=== PATIENT | male | born 1950 | race Caucasian/White ===

== ENCOUNTER 2017-12-08 10:44 | Outpatient (REF) | payer MEDICARE, BC, SELFPAY ==
[2017-12-08 20:44] LABS: Anion Gap 9.5 mmol/L (3-11); BUN 15 mg/dL (7-18); CO2 26.5 mmol/L (21.0-32.0); CREATININE 0.74 mg/dL (0.70-1.30); Calcium 9.1 mg/dL (8.5-10.1); Chloride 105 mmol/L (98-107); Glucose 100 mg/dL (70-100); Potassium 4.4 mmol/L (3.5-5.1); Sodium 141 mmol/L (136-145)
== END 2017-12-08 10:45 ==
LOC: NCHCN 10:44
PROVIDERS: PCP Physician Assistant; Visit Provider Physician Assistant Medical
DX: I10 Essential (primary) hypertension (principal)
CPT/HCPCS: 80048

== ENCOUNTER 2019-01-03 08:30 | Outpatient (REF) | payer MEDICARE, BC, SELFPAY ==
[2019-01-03 19:29] LABS: Anion Gap 11.1 mmol/L (3-11); BUN 17 mg/dL (7-18); CO2 23.9 mmol/L (21.0-32.0); CREATININE 0.82 mg/dL (0.70-1.30); Calculated LDL 109 mg/dL; Chloride 105 mmol/L (98-107); Cholesterol 195 mg/dL (50-200); Glucose 122 mg/dL (70-100); HDL Cholesterol 75 mg/dL (40-60); Hemoglobin A1C 5.8 % (4.5-6.2); Potassium 4.5 mmol/L (3.5-5.1); Sodium 140 mmol/L (136-145); Triglyceride 57 mg/dL (30-150)
== END 2019-01-03 08:50 ==
LOC: NCHCN 08:30
PROVIDERS: PCP Physician Assistant; Visit Provider Nurse Practitioner Family
DX: R73.9 Hyperglycemia, unspecified (principal); I10 Essential (primary) hypertension; Z13.6 Encounter for screening for cardiovascular disorders
CPT/HCPCS: 80048; 80061; 83036

== ENCOUNTER 2020-01-16 14:34 | Outpatient (REF) | payer MEDICARE, BC, SELFPAY ==
[2020-01-16 19:07] LABS: ALT 24 U/L (16-63); AST 10 U/L (15-37); Albumin 4.2 g/dL (3.4-5.0); Alkaline Phosphatase 70 U/L (46-116); Anion Gap 4.8 mmol/L (3-11); BUN 17 mg/dL (7-18); Bilirubin, Total 1.5 mg/dL (0.2-1.0); CO2 28.2 mmol/L (21.0-32.0); CREATININE 0.72 mg/dL (0.70-1.30); Calcium 9.1 mg/dL (8.5-10.1); Calculated LDL 110 mg/dL (<100); Chloride 105 mmol/L (98-107); Cholesterol 209 mg/dL (<200); Glucose 110 mg/dL (74-106); HDL Cholesterol 88 mg/dL (40-60); Potassium 4.2 mmol/L (3.5-5.1); Sodium 138 mmol/L (136-145); TSH (W/Ref FT4) 3.77 uIU/mL (0.36-3.74); Total Protein 7.4 g/dL (6.4-8.2); Triglyceride 58 mg/dL (<150)
[2020-01-16 19:26] LABS: FREE T4 0.91 ng/dL (0.76-1.46)
== END 2020-01-16 14:54 ==
LOC: NCHCN 14:34
PROVIDERS: PCP Physician Assistant; Visit Provider Physician Assistant
DX: R73.03 Prediabetes (principal); I10 Essential (primary) hypertension
CPT/HCPCS: 80053; 80061; 84439; 84443

== ENCOUNTER 2021-02-07 14:52 | Outpatient (REF) | payer MEDICARE, BC, SELFPAY ==
[2021-02-07 20:10] LABS: HCT 47.2 % (40.0-50.0); HGB 15.1 g/dL (13.5-17.5); MCH 30.9 pg (27.0-33.0); MCV 96.5 fL (80-95); MPV 11.1 fL (8.0-11.0); Platelet Count 276 10^3/uL (130-400); RBC 4.89 10^6/uL (4.36-5.78); RDW 12.9 % (11.8-14.1); RDW-SD 46.5 fL; WBC 5.84 10^3/uL (4.4-10.8)
[2021-02-07 20:29] LABS: ALT 26 U/L (16-63); Anion Gap 9.8 mmol/L (3-11); BUN 14 mg/dL (7-18); CO2 27.2 mmol/L (21.0-32.0); CREATININE 0.9 mg/dL (0.70-1.30); Calcium 9.3 mg/dL (8.5-10.1); Calculated LDL 114 mg/dL (<100); Chloride 104 mmol/L (98-107); Cholesterol 207 mg/dL (<200); Glucose 118 mg/dL (74-106); HDL Cholesterol 85 mg/dL (40-60); Potassium 4.6 mmol/L (3.5-5.1); Sodium 141 mmol/L (136-145); Triglyceride 40 mg/dL (<150)
[2021-02-07 21:00] LABS: Creatine Kinase 61 U/L (39-308)
== END 2021-02-07 14:53 | disposition home or self-care (01) ==
LOC: NCHCN 14:52
PROVIDERS: PCP Physician Assistant; Visit Provider Internal Medicine
DX: I48.91 Unspecified atrial fibrillation (principal)
CPT/HCPCS: 80048; 80061; 82550; 85027; 84460

== ENCOUNTER 2021-12-04 15:08 | Outpatient (REF) | payer MEDICARE, BC, SELFPAY ==
[2021-12-04 19:08] LABS: HGB 15.5 g/dL (13.5-17.5); MCH 31.2 pg (27.0-33.0); MCV 95 fL (80-95); MPV 10.8 fL (8.0-11.0); Platelet Count 255 10^3/uL (130-400); RBC 4.97 10^6/uL (4.36-5.78); RDW 13.2 % (11.8-14.1); RDW-SD 46.1 fL; WBC 8.67 10^3/uL (4.4-10.8)
[2021-12-04 19:18] LABS: ALT 35 U/L (16-63); AST 18 U/L (15-37); Albumin 4.2 g/dL (3.4-5.0); Alkaline Phosphatase 75 U/L (46-116); Anion Gap 10.7 mmol/L (3-11); BUN 18 mg/dL (7-18); CO2 25.3 mmol/L (21.0-32.0); CREATININE 0.8 mg/dL (0.70-1.30); Chloride 105 mmol/L (98-107); Glucose 108 mg/dL (74-106); LDL CHOLESTEROL 105 mg/dL (<100); Potassium 4.3 mmol/L (3.5-5.1); Sodium 141 mmol/L (136-145); Total Protein 7.6 g/dL (6.4-8.2)
== END 2021-12-04 15:09 | disposition home or self-care (01) ==
LOC: NCHCN 15:08
PROVIDERS: PCP Physician Assistant; Visit Provider Internal Medicine
DX: I48.91 Unspecified atrial fibrillation (principal); I10 Essential (primary) hypertension; R73.03 Prediabetes
CPT/HCPCS: 80053; 83721; 85027

== ENCOUNTER 2023-03-05 22:27 | Outpatient (REF) | payer MEDICARE, BC, SELFPAY ==
[2023-03-05 18:47] LABS: Abs Immature Grans 0.03 10^3/uL (0.0-0.06); Absolute Basophil Count 0.06 10^3/uL (0.0-0.2); Absolute Eosinophil Count 0.11 10^3/uL (0.0-0.7); Absolute Lymphocyte Count 0.96 10^3/uL (1.2-3.4); Absolute Monocyte Count 0.54 10^3/uL (0.1-0.8); Basophils % 0.9; Eosinophils % 1.7; HCT 49.3 % (40.0-50.0); Immature Grans % 0.5; Lymphocytes % 14.8; MCH 31.5 pg (27.0-33.0); MCHC 32.5 % (32.0-36.0); MCV 97 fL (80-95); MPV 10.9 fL (8.0-11.0); Monocytes % 8.3; Neutrophils % 73.8; Platelet Count 275 10^3/uL (130-400); RBC 5.08 10^6/uL (4.36-5.78); RDW 13.1 % (11.8-14.1); RDW-SD 46.8 fL
[2023-03-05 18:57] LABS: Anion Gap 5.8 mmol/L (3-11); BUN 13 mg/dL (7-18); CO2 29.2 mmol/L (21.0-32.0); CREATININE 0.9 mg/dL (0.70-1.30); Calcium 9.8 mg/dL (8.5-10.1); Calculated LDL 113 mg/dL (<100); Chloride 106 mmol/L (98-107); Cholesterol 216 mg/dL (<200); Estimated GFR 89.07 (mL/min/1.73m2); Glucose 117 mg/dL (74-106); HDL Cholesterol 88 mg/dL (40-60); Sodium 141 mmol/L (136-145); Triglyceride 77 mg/dL (<150)
== END 2023-03-05 22:28 | disposition home or self-care (01) ==
LOC: NCHCN 22:27
PROVIDERS: PCP Internal Medicine; Visit Provider Internal Medicine
DX: I10 Essential (primary) hypertension (principal); E78.5 Hyperlipidemia, unspecified; I48.91 Unspecified atrial fibrillation
CPT/HCPCS: 80048; 80061; 85025